=== PATIENT | male | born 1955 | race Caucasian/White ===

== ENCOUNTER 2019-01-28 16:51 | Inpatient (IN) ==
[2019-01-28] MEDS ORDERED: Morphine Sulfate Inj 2 MG/ML Vial IV.PUSH ONE (17:32)
[2019-01-28] MEDS: Sod Chloride 0.9% Inj 1,000 ML IV.CONT SCH ×2 (17:48→21:03)
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
[2019-01-28 17:53] LABS: Hemoglobin 16.2 gm/dL (13.0-17.0); Mean Corpuscular HGB Conc 33.7 % (32.0-36.0); Mean Corpuscular Hemoglobin 29.9 pg (27.0-34.0); Mean Corpuscular Volume 88.6 fL (80.0-100.0); Mean Platelet Volume 6.8 fL (7.0-11.0); Platelet Count 390 th/mm3 (150-450); Red Blood Count 5.41 mil/mm3 (4.50-5.90); Red Cell Distribution Width 13.6 % (11.6-17.2); White Blood Count 14.1 th/mm3 (4.0-11.0)
[2019-01-28 18:04] LABS: Chloride 106 meq/L (98-107); Potassium 3.8 meq/L (3.5-5.1); Sodium 139 meq/L (136-145)
[2019-01-28 18:07] LABS: Calcium 9.3 mg/dL (8.5-10.1)
[2019-01-28 18:08] LABS: Albumin 3.1 g/dL (3.4-5.0); Anion Gap 7 meq/L (5-15); Blood Urea Nitrogen 16 mg/dL (7-18); Carbon Dioxide 26.3 meq/L (21.0-32.0); Glucose,Random 134 mg/dL (74-106)
[2019-01-28 18:10] LABS: Activated Partial Thrombo Time 26.5 sec (23.4-31.7); Prothrombin Time 10.5 sec (9.8-11.6)
[2019-01-28 18:11] LABS: Alanine Aminotransferase 25 U/L (12-78); Aspartate Aminotransferase 28 U/L (15-37); Glomerular Filtration Rate 67 mL/min (>89)
[2019-01-28 18:13] LABS: Total Protein 7.6 g/dL (6.4-8.2)
[2019-01-28 18:14] LABS: Alkaline Phosphatase 86 U/L (45-117)
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
[2019-01-28 18:23] LABS: Eosinophils 1 % (0-4); Lymphocytes 16 % (9-44); Monocytes 7 % (0-8)
[2019-01-28 18:24] LABS: Platelet Estimate Normal (Normal); Platelet Morphology Normal (Normal)
[2019-01-28] MEDS ORDERED: Azithromycin Inj 500 MG in Sodium Chlor 0.9% Inj 250 ML IV.SIG ONE (19:25)
[2019-01-28] MEDS ORDERED: Bisacodyl 10 MG Supp RECTAL PRN (19:50)
[2019-01-28] MEDS: predniSONE 20 MG Tablet PO SCH (21:01)
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
[2019-01-28] MEDS: Gabapentin 300 MG Capsule PO SCH (22:01)
[2019-01-28] MEDS: traZODone 50 MG Tablet PO SCH (22:01)
[2019-01-28 23:12] LABS: Bilirubin,Urine Negative (Negative); Clarity,Urine Clear (Clear); Color,Urine Yellow (Yellw/Straw); Glucose,Urine (UA) Negative (Negative); Leukocyte Esterase,Urine Negative (Negative); Nitrite,Urine Negative (Negative); Specific Gravity,Urine 1.015 (1.002-1.035)
[2019-01-28 23:23] LABS: Hyaline Casts,Urine 0-3 /lpf (0-3); Mucus,Urine Few /lpf (Occasional); RBC,Urine 0-3 /hpf (0-3); Squamous Epithelial Cell,Urine 0-5 /hpf (0-5); WBC,Urine 0-5 /hpf (0-5)
[2019-01-29] MEDS: Sod Chloride 0.9% Inj 1,000 ML IV.CONT SCH ×4 (02:26→20:20)
[2019-01-29 06:27] LABS: Baso % (Auto) 0.1 % (0.0-2.0); Hematocrit 41.3 % (39.0-51.0); Hemoglobin 14.1 gm/dL (13.0-17.0); Lymph # (Auto) 0.4 th/mm3 (1.0-4.8); Lymph % (Auto) 2.4 % (9.0-44.0); Mean Corpuscular HGB Conc 34.1 % (32.0-36.0); Mean Corpuscular Hemoglobin 30.5 pg (27.0-34.0); Mean Corpuscular Volume 89.3 fL (80.0-100.0); Mean Platelet Volume 7.1 fL (7.0-11.0); Mono # (Auto) 0.5 th/mm3 (0.0-0.9); Mono % (Auto) 2.8 % (0.0-8.0); Neut # (Auto) 16.9 th/mm3 (1.8-7.7); Neut % (Auto) 94.7 % (16.0-70.0); Platelet Count 388 th/mm3 (150-450); Red Blood Count 4.63 mil/mm3 (4.50-5.90); Red Cell Distribution Width 13.6 % (11.6-17.2); White Blood Count 17.8 th/mm3 (4.0-11.0)
[2019-01-29 06:35] LABS: Chloride 106 meq/L (98-107); Potassium 4.6 meq/L (3.5-5.1); Sodium 139 meq/L (136-145)
[2019-01-29 06:41] LABS: Albumin 2.7 g/dL (3.4-5.0); Anion Gap 7 meq/L (5-15); Blood Urea Nitrogen 18 mg/dL (7-18); Calcium 8.6 mg/dL (8.5-10.1); Carbon Dioxide 25.9 meq/L (21.0-32.0); Glucose,Random 137 mg/dL (74-106)
[2019-01-29 06:44] LABS: Alanine Aminotransferase 21 U/L (12-78); Aspartate Aminotransferase 13 U/L (15-37)
[2019-01-29 06:45] LABS: Glomerular Filtration Rate 67 mL/min (>89)
[2019-01-29 06:46] LABS: Total Protein 6.5 g/dL (6.4-8.2)
[2019-01-29 06:47] LABS: Alkaline Phosphatase 69 U/L (45-117)
[2019-01-29] MEDS: predniSONE 20 MG Tablet PO SCH (09:35)
[2019-01-29] MEDS: Gabapentin 300 MG Capsule PO SCH ×4 (09:35→20:20)
[2019-01-29] MEDS: Azithromycin 250 MG Tablet PO SCH (09:36)
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
[2019-01-29] MEDS: Heparin - SQ 10,000 UNITS/ML Vial SQ SCH ×2 (15:31→20:18)
[2019-01-29] MEDS: guaiFENesin 600 MG ER Tablet PO SCH ×2 (15:31→20:20)
[2019-01-29] MEDS: MethylPREDNISolone Sod Succinate Inj 40 MG/ML Vial IV.PUSH SCH ×2 (15:32→20:18)
--- NOTE | 2019-01-29 17:12 | ECG ---
Date Performed: 01/28/2019 Time Performed: 18:22:47 PTAGE: 63 years EKG: Sinus rhythm NORMAL ECG NO PREVIOUS TRACING DOCTOR: Patrice Blancas Interpretating Date/Time 01/29/2019 17:09:14
[2019-01-29] MEDS: clonazePAM 1 MG Tablet PO SCH (17:46)
[2019-01-29] MEDS: traZODone 50 MG Tablet PO SCH (20:20)
[2019-01-29 22:13] LABS: Hemoglobin A1c 5.7 % (4.3-6.0)
[2019-01-30] MEDS: Sod Chloride 0.9% Inj 1,000 ML IV.CONT SCH ×5 (01:15→22:30)
[2019-01-30] MEDS: MethylPREDNISolone Sod Succinate Inj 40 MG/ML Vial IV.PUSH SCH ×4 (02:32→21:27)
[2019-01-30 06:49] LABS: Potassium 4.7 meq/L (3.5-5.1)
[2019-01-30 06:50] LABS: Baso # (Auto) 0.1 th/mm3 (0.0-0.2); Baso % (Auto) 0.2 % (0.0-2.0); Eos % (Auto) 0.1 % (0.0-4.0); Hematocrit 42.8 % (39.0-51.0); Hemoglobin 14.5 gm/dL (13.0-17.0); Lymph # (Auto) 0.8 th/mm3 (1.0-4.8); Mean Corpuscular HGB Conc 33.9 % (32.0-36.0); Mean Corpuscular Hemoglobin 30.1 pg (27.0-34.0); Mean Corpuscular Volume 88.8 fL (80.0-100.0); Mean Platelet Volume 7.1 fL (7.0-11.0); Mono # (Auto) 0.4 th/mm3 (0.0-0.9); Mono % (Auto) 1.6 % (0.0-8.0); Neut % (Auto) 95.1 % (16.0-70.0); Platelet Count 432 th/mm3 (150-450); Red Blood Count 4.82 mil/mm3 (4.50-5.90); Red Cell Distribution Width 13.5 % (11.6-17.2); White Blood Count 25.3 th/mm3 (4.0-11.0)
[2019-01-30 06:56] LABS: Calcium 8.8 mg/dL (8.5-10.1); Carbon Dioxide 25.8 meq/L (21.0-32.0)
[2019-01-30] MEDS: clonazePAM 1 MG Tablet PO SCH ×3 (08:41→17:17)
[2019-01-30] MEDS: guaiFENesin 600 MG ER Tablet PO SCH ×2 (08:41→21:23)
[2019-01-30] MEDS: Azithromycin 250 MG Tablet PO SCH (08:42)
[2019-01-30] MEDS: Gabapentin 300 MG Capsule PO SCH ×4 (08:42→21:23)
[2019-01-30] MEDS: Heparin - SQ 10,000 UNITS/ML Vial SQ SCH ×2 (08:47→21:25)
--- NOTE | 2019-01-30 09:42 | P.PNIM ---
Subjective Interval history: This is a 63-year-old male seen and examined for follow-up of COPD, chronic pain , and anxiety. Patient was sitting up at bedside, just finished breakfast. He states he does feel better. Patient slept a few hours throughout the night, states he had no trouble with his breathing. Denies chest pain or worsening of shortness of breath. Reports his coughing has lessened with less phlegm production. Patient states he is feeling more anxious, and wanted to be reassured that he will be given clonazepam 3 times a day as he does at home. Vital signs are reviewed, patient is afebrile. Physical Exam Vital signs: Vital Signs 01/29/19 11:55 01/29/19 12:00 01/29/19 13:15 Temperature 97.8 F Pulse Rate 94 H 90 Respiratory Rate 18 18 Blood Pressure 128/63 Pulse Oximetry 92 L 90 L 01/29/19 16:00 01/29/19 19:29 01/29/19 20:00 Temperature 97.0 F L 98 F Pulse Rate 89 91 H 94 H Respiratory Rate 18 18 20 Blood Pressure 136/72 125/60 Pulse Oximetry 92 L 94 L 93 L 01/30/19 00:00 01/30/19 07:20 Temperature 97.8 F Pulse Rate 88 89 Respiratory Rate 20 18 Blood Pressure 126/61 Pulse Oximetry 93 L 92 L Intake & Output 01/29/19 01/30/19 01/30/19 18:59 06:59 18:59 Intake Total 3260 / 3260 580 / 580 100 / 100 Output Total 1350 / 1350 1000 / 1000 Balance 3260 / 3260 -770 / -770 -900 / -900 Weight 92 kg Intake: IV 1700 / 1700 100 / 100 100 / 100 NS Inj 1,000 ML @ 50 mls/hr IV. 1600 / 1600 CONT .Q20H [facility] Rx#:[id number] Maxipime Inj 2,000 MG In NS Inj 100 / 100 100 / 100 100 / 100 100 ML @ 200 mls/hr IV.SIG Q12H [facility] Rx#:[id number] Oral 1560 / 1560 480 / 480 Output: Urine 1350 / 1350 1000 / 1000 Other: # Voids 5 4 Date of Last Bowel Movement 01/28/19 01/29/19 02/26/19 # Bowel Movements 0 Narrative: GENERAL: Well-developed, well-nourished, alert and in no acute distress. SKIN: Warm and dry. HEAD: Atraumatic. Normocephalic. EYES: Pupils equal and round. No scleral icterus. No injection or drainage. ENT: No nasal bleeding or discharge. Mucous membranes pink and moist. CARDIOVASCULAR: Regular rate and rhythm. No murmur noted. RESPIRATORY: Bilateral rales and rhonchi present. E/A egophony positive in the left lower lobe; improved since yesterday. GASTROINTESTINAL: Abdomen soft, non-tender, nondistended. Bowel sounds present. MUSCULOSKELETAL: Extremities without clubbing, cyanosis, or edema. Right arm is in sling. NEUROLOGICAL: Awake and alert. No obvious cranial nerve deficits. Motor grossly within normal limits, except right arm is immobile and in sling. Normal speech. PSYCHIATRIC: Appropriate mood and affect; insight and judgment normal. Results - Labs CBC & Chem 7: 01/30/19 06:00 01/30/19 06:00 Laboratory Results - last 24 hr 01/29/19 01/29/19 01/29/19 05:30 15:30 18:25 CBC w Diff WBC RBC Hgb Hct MCV MCH MCHC RDW Plt Count MPV Neut % (Auto) Lymph % (Auto) [place] % (Auto) Eos % (Auto) Baso % (Auto) Neut # (Auto) Lymph # (Auto) [place] # (Auto) Eos # (Auto) Baso # (Auto) WBC Differential Differential Comment Sodium Potassium Chloride Carbon Dioxide Anion Gap BUN Creatinine Estimated GFR Random Glucose Hemoglobin A1c 5.7 Lactic Acid 2.3 H 2.5 H Calcium 01/30/19 01/30/19 06:00 06:00 CBC w Diff Auto diff final WBC 25.3 H RBC 4.82 Hgb 14.5 Hct 42.8 MCV 88.8 MCH 30.1 MCHC 33.9 RDW 13.5 Plt Count 432 MPV 7.1 Neut % (Auto) 95.1 H Lymph % (Auto) 3.0 L [place] % (Auto) 1.6 Eos % (Auto) 0.1 Baso % (Auto) 0.2 Neut # (Auto) 24.0 H Lymph # (Auto) 0.8 L [place] # (Auto) 0.4 Eos # (Auto) 0.0 Baso # (Auto) 0.1 WBC Differential . Differential Comment . Sodium 137 Potassium 4.7 Chloride 105 Carbon Dioxide 25.8 Anion Gap 6 BUN 20 H Creatinine 1.00 Estimated GFR 75 L Random Glucose 143 H Hemoglobin A1c Lactic Acid Calcium 8.8 Microbiology 01/28/19 17:45 Blood - Peripheral Aerobic Blood Culture - Preliminary No growth in 1 day 01/28/19 17:45 Blood - Peripheral Anaerobic Blood Culture - Preliminary No growth in 1 day 01/28/19 17:40 Blood - Peripheral Aerobic Blood Culture - Preliminary No growth in 1 day 01/28/19 17:40 Blood - Peripheral Anaerobic Blood Culture - Preliminary No growth in 1 day 01/28/19 20:20 Sputum - Expectorated Sputum Gram Stain - Final Assessment and Plan - Assessment (1) Pneumonia Code(s): J18.9 - Pneumonia, unspecified organism Status: Acute (2) Fracture of clavicle, right, closed Code(s): S42.001A - Fracture of unspecified part of right clavicle, initial encounter for closed fracture Status: Acute (3) Fracture of rib of right side Code(s): S22.31XA - Fracture of one rib, right side, initial encounter for closed fracture Status: Acute - Plan Sepsis -Patient met criteria on admission with leukocytosis, tachycardia, Community acquired pneumonia -Influenza testing was negative -Blood cultures negative for 1 day -Sputum cultures pending, sputum Gram stain showed moderate mixed liane predominant gram-positive cocci in pairs and chains. -Continue empirical antibiotics for community acquired pneumonia -Lactic acid level elevated, 2.5 mmol/L. Will repeat levels. Community-acquired pneumonia: -Shortness of breath has improved since starting treatment -CT showed mild patchy airspace consolidation in the lower lobes, left greater than right. -Continue antibiotics include cefepime, Zithromax -Continue duo nebs every 6 hours while awake and every 2 hours as needed -Continue Mucinex 600 mg twice daily COPD: -Continue O2 supplementation maintain O2 sats greater than 92% -Continue Solu-Medrol 40 mg IV every 6 hours -Continue nebulizer treatments as above -Continue Acapella Leukocytosis: -Elevated from yesterday, most likely due to to response to steroid treatment. -Most likely secondary to pneumonia -Monitor CBC Fracture of right clavicle and rib of the right side: -Patient is to continue wearing sling to stabilize fractures -Continue pain control Hyperglycemia -Hemoglobin A1c not in diabetic range, level is 5.7. -We will continue to monitor and glucose level, start Accu-Cheks with sliding scale insulin if needed. Other chronic medical conditions include chronic pain, anxiety -Continue home medications DVT prevention -Subcutaneous heparin -Sequential compression devices (1) Pneumonia Qualifiers: Qualified Code(s): J18.1 - Lobar pneumonia, unspecified organism (2) Fracture of clavicle, right, closed Qualifiers: Qualified Code(s): S42.001A - Fracture of unspecified part of right clavicle, initial encounter for closed fracture (3) Fracture of rib of right side Qualifiers: Qualified Code(s): S22.41XA - Multiple fractures of ribs, right side, initial encounter for closed fracture
[2019-01-30] MEDS: traZODone 50 MG Tablet PO SCH (21:36)
[2019-01-31] MEDS ORDERED: clonazePAM 1 MG Tablet PO ONE (00:01)
[2019-01-31] MEDS: Sod Chloride 0.9% Inj 1,000 ML IV.CONT SCH ×4 (03:06→18:27)
[2019-01-31] MEDS: MethylPREDNISolone Sod Succinate Inj 40 MG/ML Vial IV.PUSH SCH ×2 (03:07→09:23)
[2019-01-31 07:03] LABS: Baso # (Auto) 0.1 th/mm3 (0.0-0.2); Baso % (Auto) 0.2 % (0.0-2.0); Hematocrit 44.8 % (39.0-51.0); Hemoglobin 14.5 gm/dL (13.0-17.0); Lymph # (Auto) 0.6 th/mm3 (1.0-4.8); Lymph % (Auto) 2.4 % (9.0-44.0); Mean Corpuscular HGB Conc 32.4 % (32.0-36.0); Mean Corpuscular Hemoglobin 29.5 pg (27.0-34.0); Mean Platelet Volume 7.1 fL (7.0-11.0); Mono # (Auto) 0.5 th/mm3 (0.0-0.9); Mono % (Auto) 1.9 % (0.0-8.0); Neut # (Auto) 24.7 th/mm3 (1.8-7.7); Neut % (Auto) 95.5 % (16.0-70.0); Platelet Count 443 th/mm3 (150-450); Red Blood Count 4.92 mil/mm3 (4.50-5.90); Red Cell Distribution Width 14.3 % (11.6-17.2); White Blood Count 25.9 th/mm3 (4.0-11.0)
[2019-01-31] MEDS: Heparin - SQ 10,000 UNITS/ML Vial SQ SCH ×2 (09:22→22:16)
[2019-01-31] MEDS: Azithromycin 250 MG Tablet PO SCH (09:23)
[2019-01-31] MEDS: clonazePAM 1 MG Tablet PO SCH ×3 (09:24→18:44)
[2019-01-31] MEDS: Acetaminophen 325 MG Tablet PO PRN ×2 (09:24→18:44)
[2019-01-31] MEDS: Gabapentin 300 MG Capsule PO SCH ×4 (09:24→22:17)
[2019-01-31] MEDS: guaiFENesin 600 MG ER Tablet PO SCH ×2 (09:24→22:17)
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
--- NOTE | 2019-01-31 12:41 | XR ---
EXAM DATE: 01/31/2019 12:38 PM EST AGE/SEX: 63 years / Male INDICATIONS: . Hemoptysis. Right side chest pain. CLINICAL DATA: This is the patient's subsequent encounter. Patient reports that signs and symptoms h ave been present for 2 weeks and indicates a pain score of 8/10. MEDICAL/SURGICAL HISTORY: . Hypertension. Chronic obstructive pulmonary disease. None. COMPARISON: [facility], CHEST 1V SINGLE AP, 01/28/2019. [facility], CTA PULMONARY W CONTRAST W 3D, 01/28/2019. PO[facility], CT LUNG SCREENING, 07/21/2018. . FINDINGS: AP and lateral views the chest demonstrate a stable appearance of bilateral basilar interstitial prom inence. No evidence of focal airspace abnormality or mass. Heart size appears grossly normal. Pulmona ry vasculature is normal. Osseous structures are intact. CONCLUSION: Stable appearance of diffuse centrilobular emphysematous change and interstitial thickening identifie d within the bilateral lung bases. Electronically signed by: Heidy Alas MD Board Certified Radiologist 01/31/2019 12:40 PM EST
[2019-01-31] MEDS: traZODone 50 MG Tablet PO SCH (22:17)
[2019-01-31] MEDS: predniSONE 20 MG Tablet PO SCH (22:17)
[2019-02-01] MEDS: Sod Chloride 0.9% Inj 1,000 ML IV.CONT SCH ×3 (03:58→09:46)
[2019-02-01 06:41] LABS: Baso % (Auto) 0.2 % (0.0-2.0); Eos % (Auto) 0.1 % (0.0-4.0); Hematocrit 44.5 % (39.0-51.0); Hemoglobin 14.9 gm/dL (13.0-17.0); Lymph % (Auto) 5.2 % (9.0-44.0); Mean Corpuscular HGB Conc 33.4 % (32.0-36.0); Mean Corpuscular Hemoglobin 29.8 pg (27.0-34.0); Mean Corpuscular Volume 89.2 fL (80.0-100.0); Mean Platelet Volume 6.7 fL (7.0-11.0); Mono # (Auto) 1.1 th/mm3 (0.0-0.9); Mono % (Auto) 5.6 % (0.0-8.0); Neut # (Auto) 17.7 th/mm3 (1.8-7.7); Neut % (Auto) 88.9 % (16.0-70.0); Platelet Count 459 th/mm3 (150-450); Red Blood Count 4.99 mil/mm3 (4.50-5.90); Red Cell Distribution Width 13.5 % (11.6-17.2); White Blood Count 19.8 th/mm3 (4.0-11.0)
[2019-02-01 07:50] VITALS: O2SAT 93
[2019-02-01 08:24] VITALS: BP 136/85; PULSE 72; RESP 22; TEMP 96.1
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
[2019-02-01] MEDS: Gabapentin 300 MG Capsule PO SCH ×2 (09:07→12:39)
[2019-02-01] MEDS: clonazePAM 1 MG Tablet PO SCH ×2 (09:07→12:39)
[2019-02-01] MEDS: guaiFENesin 600 MG ER Tablet PO SCH (09:07)
[2019-02-01] MEDS: predniSONE 20 MG Tablet PO SCH (09:07)
[2019-02-01] MEDS: Heparin - SQ 10,000 UNITS/ML Vial SQ SCH (09:08)
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
== END 2019-02-01 16:02 | disposition home or self-care (01) | DRG 871 ==
LOC: PHED 16:51 → PHEDA 19:51 → PH3 21:49
PROVIDERS: ADMIT Hospitalist; ATTEND Hospitalist
DX: A41.9 Sepsis, unspecified organism; T38.0X5A Adverse effect of glucocorticoids and synthetic analogues, initial encounter; J43.2 Centrilobular emphysema; F41.9 Anxiety disorder, unspecified; I10 Essential (primary) hypertension; Z87.820 Personal history of traumatic brain injury; G89.29 Other chronic pain; J18.1 Lobar pneumonia, unspecified organism; R73.9 Hyperglycemia, unspecified; R00.0 Tachycardia, unspecified; Z96.649 Presence of unspecified artificial hip joint; E78.5 Hyperlipidemia, unspecified; V00.148A Other scooter (nonmotorized) accident, initial encounter; E78.00 Pure hypercholesterolemia, unspecified; S22.41XA Multiple fractures of ribs, right side, initial encounter for closed fracture; S42.001A Fracture of unspecified part of right clavicle, initial encounter for closed fracture; F17.210 Nicotine dependence, cigarettes, uncomplicated
CPT/HCPCS: 71010; 71020; 71045; 71046; 71275; 80048; 80053; 81001; 83036; 83520; 83605; 83880; 85025; 85610; 85730; 87040; 87070; 87181; 87185; 87205; 87275; 87276; 87804; 90774; 90775; 93005; 94618; 94620; 94640; 94665; 94667; 94668; 96374; 96375; 97110; 97116; 97162; 97166; 99285; C8952; J0456; J0692; J1644; J2270; J2405; J2920; J7030; J7050; J7506; J7512; Q9967